=== PATIENT | male | born 2000 | race Native Hawaiian/Other Pacific Islander ===

== ENCOUNTER 2020-01-22 14:09 | Emergency (ER) | payer MEDICAID ==
[~2020-01-22] VITALS: Ht 170.2 cm; Wt 70.0 kg
[2020-01-22] MEDS ORDERED: diphenhydrAMINE 50 mg/ml inj IM ONE (14:25)
[2020-01-22] MEDS ORDERED: LORazepam 2 mg/ml vial IM ONE (14:25)
[2020-01-22] MEDS ORDERED: haloperidol lactate 5mg/ml inj IM ONE (14:25)
--- NOTE | 2020-01-22 15:30 | NUR ---
pt is in his bed. the police crime scene technician is writing [id number]
--- NOTE | 2020-01-22 16:30 | NUR ---
pt is sleeping. no concerns at this time
[2020-01-22 16:43] LABS: BASOPHILS # (AUTO) 0.1 X10'3 (0-0.2); BASOPHILS % (AUTO) 0.8 % (0-1); EOSINOPHILS # (AUTO) 0.4 X10'3 (0-0.9); EOSINOPHILS % (AUTO) 4.3 % (0-6); HEMATOCRIT 40.1 % (42.0-52.0); HEMOGLOBIN 13.6 g/dl (14.0-17.9); LYMPHOCYTES # (AUTO) 1.5 X10'3 (1.1-4.8); LYMPHOCYTES % (AUTO) 14.5 % (21-51); MEAN CORPUSCULAR HEMOGLOBIN 31.3 PG (27.0-31.0); MEAN CORPUSCULAR HGB CONC 33.9 g/dL (33.0-36.5); MEAN CORPUSCULAR VOLUME 92.5 FL (78-98); MEAN PLATELET VOLUME 6.9 FL (7.4-10.4); MONOCYTES # (AUTO) 0.6 X10'3 (0-0.9); MONOCYTES % (AUTO) 5.7 % (2-12); NEUTROPHILS # (AUTO) 7.6 X10'3 (1.8-7.7); NEUTROPHILS % (AUTO) 74.7 % (42-75); PLATELET COUNT 355 X10'3 (140-440); RED BLOOD COUNT 4.34 X10'6 (4.70-6.10); RED CELL DISTRIBUTION WIDTH 12.8 % (11.5-14.5); WHITE BLOOD COUNT 10.2 X10'3 (4.5-11.0)
[2020-01-22 16:53] LABS: CLARITY,URINE CLEAR (Clear); COLOR,URINE STRAW (Yellow); GLUCOSE, URINE NEGATIVE (Neg); KETONES,URINE NEGATIVE (Neg); LEUKOCYTE ESTERASE ,URINE NEGATIVE (Neg); NITRITES, URINE NEGATIVE (Neg); OCCULT BLOOD,URINE NEGATIVE (Neg); PROTEIN,URINE NEGATIVE (Neg); UROBILINOGEN,URINE 0.2 E.U/dL (0.2-1.0)
[2020-01-22 16:59] LABS: ALANINE AMINOTRANSFERASE 32 U/L (12-78); ALBUMIN 3.6 G/DL (3.4-5.0); ALBUMIN/GLOBULIN RATIO 1.2 (1.1-1.5); ALKALINE PHOSPHATASE 50 IU/L (46-116); ANION GAP 6 (8-16); ASPARTATE AMINO TRANSFERASE 29 U/L (10-37); BILIRUBIN,TOTAL 0.4 MG/DL (0.1-1.0); BLOOD UREA NITROGEN 9 MG/DL (7-18); BUN/CREATININE RATIO 13.6 (5.4-32.0); CHLORIDE 103 MMOL/L (99-107); CREATININE 0.66 MG/DL (0.60-1.10); GLUCOSE 87 MG/DL (70-104); POTASSIUM 3.9 MMOL/L (3.5-5.1); SODIUM 141 MMOL/L (135-145); TOTAL CARBON DIOXIDE 31.6 MMOL/L (24-32); TOTAL PROTEIN 6.5 G/DL (6.4-8.2); eGFR > 90 ML/MIN
[2020-01-22 17:00] LABS: URINE AMPHETAMINE SCREEN NEGATIVE (Neg); URINE BARBITUATE SCREEN NEGATIVE (Neg); URINE BENZODIAZEPINES SCREEN NEGATIVE (Neg); URINE CANNABINOID SCREEN POSITIVE (Neg); URINE COCAINE SCREEN NEGATIVE (Neg); URINE METHADONE SCREEN NEGATIVE (Neg); URINE OPIATE SCREEN NEGATIVE (Neg); URINE PHENCYCLIDINE SCREEN NEGATIVE (Neg)
[2020-01-22 17:04] LABS: UA COLLECTION TYPE CLN CATCH MIDSTREAM
[2020-01-22 17:05] LABS: ETHANOL < 0.010 GM/DL (0.0-0.010)
--- NOTE | 2020-01-22 17:59 | NUR ---
father Luis phone # [phone]
--- NOTE | 2020-01-22 18:51 | NUR ---
Patient is sleeping in a supine position. In view from nursing station.
--- NOTE | 2020-01-22 20:27 | NUR ---
Patient is sleeping quietly on his right side.
--- NOTE | 2020-01-23 00:49 | NUR ---
Patient sleeping on his left side, no distress. He self repositions.
--- NOTE | 2020-01-23 02:08 | NUR ---
Patient awoke, went to bathroom to void. Patient came to nursing station, wanted to know, "can I leave?" Patient was reoriented to the unit, advised he was on a psychiatric hold. Patient returned to bed and then sleep.
--- NOTE | 2020-01-23 04:32 | NUR ---
Patient up to nursing station. He requests and is denied shoes. Patient expresses his want to leave. Patient is advised once again that he is on a mental health hold. He then goes to bathroom and returns to bed.
--- NOTE | 2020-01-23 05:00 | NUR ---
Patient responding to internal stimuli. He is redirected to bed.
--- NOTE | 2020-01-23 05:52 | NUR ---
Betzaida garza in [facility] - 01/23/20 at 0614 by HODA Patient sleeping now. In view from nursing station.
--- NOTE | 2020-01-23 06:14 | NUR ---
Patient up to bathroom, responding to intrernal stimuli. Patilent affect if flat.
--- NOTE | 2020-01-23 07:21 | NUR ---
PT TRIED TO WALK OUT, STATES HE WANTED TO GET FRESH AIR, SECURITY CALLED TO ESCORT PT BACK TO HIS BED.
--- NOTE | 2020-01-23 08:40 | NUR ---
PT AWAKE EATING BREAKFAST.
--- NOTE | 2020-01-23 09:15 | NUR ---
PT SPOKE WITH PEDRO ON THE PHONE, HE STARTED TO GET UPSET, SAYING HE'S NEVER FELT LOVED. I TOLD HIM HE NEEDED TO END THE CONVERSATION SINCE IT WAS MAKING HIM UPSET. HE HANDED OVER THE PHONE AND IS NOW SLEEPING IN BED.
--- NOTE | 2020-01-23 11:00 | NUR ---
[facility] AT BEDSIDE EVALUATING PT
--- NOTE | 2020-01-23 11:36 | NUR ---
pt wondering, picked out a book and took it back to his bed
--- NOTE | 2020-01-23 11:51 | NUR ---
moved pt to bed 22 to be closer to the nurses station
--- NOTE | 2020-01-23 12:46 | NUR ---
packet faxed to [place] [facility]
[2020-01-23] MEDS ORDERED: LORazepam 1 MG tablet PO ONE (12:50)
--- NOTE | 2020-01-23 13:00 | NUR ---
Provided pt lunch.
--- NOTE | 2020-01-23 13:10 | NUR ---
administered ativan to pt due to pacing and trying to leave, also pt jumping in place and fidgeting with hands
--- NOTE | 2020-01-23 15:00 | NUR ---
PT SLEEPING, IN NO APPARENT DISTRESS, EVEN RISE AND FALL OF CHEST, WILL CONTINUE TO MONITOR CLOSELY.
--- NOTE | 2020-01-23 16:04 | NUR ---
PT AWAKE, UP TO BATHROOM INDEPENDENTLY.
--- NOTE | 2020-01-23 16:26 | NUR ---
PT IS ON THE PHONE WITH HIS FATHER
--- NOTE | 2020-01-23 16:57 | NUR ---
[facility] ACCEPTED PT.
[2020-01-23 17:34] VITALS: BP 127/65
--- NOTE | 2020-01-23 18:30 | NUR ---
PT WANDERING THE UNIT LOOKING FOR MAGIZINES REDIRECTED TO BED
--- NOTE | 2020-01-23 18:45 | NUR ---
CALLED UP TO [facility] FOR PT TO BE TYRANSFER UPSTAIRS ADMISSION PAPER WORK IS CURRENTLY AWAITING PT TO BE TRANSFERED UPSTAIR . THE PHONE WAS PICKED UP AND THEN DROPPED WITH OUT CONVERSATION WILL TRY AGAIN IN AN HOUR
--- NOTE | 2020-01-23 19:35 | NUR ---
PT FINISHING UP DINNER ASKED TO STAY IN HI S SPACE PROVIDED . ASKING WHEN HE IS GOING TO GO UP STAIRS
--- NOTE | 2020-01-23 19:49 | NUR ---
SPOKE WITH [facility] [employer] . SHE STATED THEY WOULD BE DOWN TO PICK PATIENT UP AT 2030 . UPDATED PATIEBNT WITH THAT PLAN OF CARE PT STANDING UPRIGHT NEXT TO BED
--- NOTE | 2020-01-23 20:23 | NUR ---
PT UP OUT OF BED TO USE PHONE TO TALK TO FATHER
--- NOTE | 2020-01-23 20:45 | NUR ---
behavior health tech to come and get patient for admission . pt ambulated off unit with steady gait with tech and security .
[2020-01-23] MEDS ORDERED: NO HOME MEDS (21:11)
== END 2020-01-23 20:45 ==
LOC: ER 14:09
DX: F29 Unspecified psychosis not due to a substance or known physiological condition (principal); R45.851 Suicidal ideations; R45.6 Violent behavior
CPT/HCPCS: 36415; 80053; 80305; 80320; 81003; 84443; 85025; 96372; 99285; J1200; J1630; J2060

== ENCOUNTER 2020-02-27 12:29 | Emergency (ER) | payer MEDICAID ==
[~2020-02-27] VITALS: Ht 170.2 cm; Wt 68.2 kg
[~2020-02-27 12:29] MED LIST: NICO-668 BC; RISP0.5T3 PO; RISP2TAB3 PO; TRAZ-251 PO
--- NOTE | 2020-02-27 13:08 | NUR ---
Patient ambulated to bed 20. Changing into scrubs at this time.
[2020-02-27 13:50] LABS: URINE AMPHETAMINE SCREEN NEGATIVE (Neg); URINE BARBITUATE SCREEN NEGATIVE (Neg); URINE BENZODIAZEPINES SCREEN NEGATIVE (Neg); URINE CANNABINOID SCREEN NEGATIVE (Neg); URINE COCAINE SCREEN NEGATIVE (Neg); URINE METHADONE SCREEN NEGATIVE (Neg); URINE OPIATE SCREEN NEGATIVE (Neg); URINE PHENCYCLIDINE SCREEN NEGATIVE (Neg)
[2020-02-27 13:50] LABS: BASOPHILS # (AUTO) 0.1 X10'3 (0-0.2); BASOPHILS % (AUTO) 0.8 % (0-1); EOSINOPHILS # (AUTO) 0.1 X10'3 (0-0.9); HEMATOCRIT 44.4 % (42.0-52.0); HEMOGLOBIN 14.8 g/dl (14.0-17.9); LYMPHOCYTES # (AUTO) 1.2 X10'3 (1.1-4.8); LYMPHOCYTES % (AUTO) 10.4 % (21-51); MEAN CORPUSCULAR HEMOGLOBIN 31.2 PG (27.0-31.0); MEAN CORPUSCULAR HGB CONC 33.3 g/dL (33.0-36.5); MEAN CORPUSCULAR VOLUME 93.6 FL (78-98); MEAN PLATELET VOLUME 7.5 FL (7.4-10.4); MONOCYTES # (AUTO) 0.9 X10'3 (0-0.9); MONOCYTES % (AUTO) 8.1 % (2-12); NEUTROPHILS # (AUTO) 9.3 X10'3 (1.8-7.7); NEUTROPHILS % (AUTO) 79.7 % (42-75); PLATELET COUNT 294 X10'3 (140-440); RED BLOOD COUNT 4.75 X10'6 (4.70-6.10); RED CELL DISTRIBUTION WIDTH 14.1 % (11.5-14.5); WHITE BLOOD COUNT 11.7 X10'3 (4.5-11.0)
[2020-02-27 14:06] LABS: ALANINE AMINOTRANSFERASE 136 U/L (12-78); ALBUMIN 4.6 G/DL (3.4-5.0); ALBUMIN/GLOBULIN RATIO 1.4 (1.1-1.5); ALKALINE PHOSPHATASE 76 IU/L (46-116); ANION GAP 7 (8-16); ASPARTATE AMINO TRANSFERASE 37 U/L (10-37); BILIRUBIN,TOTAL 0.8 MG/DL (0.1-1.0); BLOOD UREA NITROGEN 11 MG/DL (7-18); BUN/CREATININE RATIO 12.5 (5.4-32.0); CALCIUM 9.3 MG/DL (8.5-10.1); CHLORIDE 101 MMOL/L (99-107); CREATININE 0.88 MG/DL (0.60-1.10); GLUCOSE 127 MG/DL (70-104); POTASSIUM 3.9 MMOL/L (3.5-5.1); SODIUM 136 MMOL/L (135-145); TOTAL PROTEIN 7.9 G/DL (6.4-8.2); eGFR > 90 ML/MIN
[2020-02-27 14:16] LABS: ETHANOL < 0.010 GM/DL (0.0-0.010)
[2020-02-27] MEDS ORDERED: RISP2TAB3 PO (14:30)
[2020-02-27] MEDS ORDERED: RISP1TAB3 PO (14:30)
[2020-02-27] MEDS ORDERED: TRAZ-251 PO (14:30)
[2020-02-27] MEDS ORDERED: traZODone 50mg tablet PO PRN (14:45)
--- NOTE | 2020-02-27 15:16 | NUR ---
Betzaida garza in ED - 02/27/20 at 1517 by AYAN Patient standing by bedside. Resistent to care, not answering any questions.
--- NOTE | 2020-02-27 15:17 | NUR ---
Patient walking unit, going in and out of restroom. Pt admits to , restarted medications from [facility]. Patient is making noise BRRRRR. Jose Alfredo's father called and stated he did not want him back until he is stable and on "the right medications".
--- NOTE | 2020-02-27 15:33 | NUR ---
Packet faxed to [facility]
--- NOTE | 2020-02-27 17:30 | NUR ---
Patient is pacing unit. He keeps asking RN why he is here, and then when he is told that he was threatening to get a gun and shoot himself, he does not seem to respond with understanding.
[2020-02-27] MEDS ORDERED: LORazepam 1 MG tablet PO ONE (18:35)
[2020-02-27] MEDS: risperiDONE 2mg tablet PO SCH (20:10)
--- NOTE | 2020-02-27 20:20 | NUR ---
PATIENT HAS BEEN WANDERING THROUGHOUT THE UNIT. HE RECIEVED HIS NIGHT MEDS AND IS SLOWLY BECOMING MORE RESTFUL.
[2020-02-28 01:31] LABS: CLARITY,URINE CLEAR (Clear); COLOR,URINE YELLOW (Yellow); GLUCOSE, URINE NEGATIVE (Neg); KETONES,URINE NEGATIVE (Neg); LEUKOCYTE ESTERASE ,URINE NEGATIVE (Neg); NITRITES, URINE NEGATIVE (Neg); OCCULT BLOOD,URINE NEGATIVE (Neg); PROTEIN,URINE NEGATIVE (Neg); UROBILINOGEN,URINE 0.2 E.U/dL (0.2-1.0)
[2020-02-28 01:34] LABS: UA COLLECTION TYPE VOIDED
[2020-02-28 05:48] VITALS: BP 129/61
[2020-02-28] MEDS ORDERED: LORazepam 1 MG tablet PO ONE (06:25)
--- NOTE | 2020-02-28 06:26 | NUR ---
PT PACING FLOOR, ASKING TO USE THE PHONE. INFORM PT THAT HE CAN USE THE PHONE AT 8AM.
[2020-02-28] MEDS: risperiDONE 2mg tablet PO SCH (07:04)
--- NOTE | 2020-02-28 07:30 | NUR ---
PT IS NOW IN BED AND SLEEPING. NO S/S AGITATION OR DISTRESS.
--- NOTE | 2020-02-28 08:00 | NUR ---
PT'S FATHER CALLS TO CHECK ON HIM. PT IS SLEEPING AND HE WILL CALL BACK.
--- NOTE | 2020-02-28 09:33 | NUR ---
patient accepted to [facility] via [facility] office
--- NOTE | 2020-02-28 09:50 | NUR ---
PT AWAKE, AMB TO BATHROOM, GIVEN THE PHONE REQUESTED.
--- NOTE | 2020-02-28 10:42 | NUR ---
PT'S FATHER CALLS AND IS TALKING TO THE PT. PT IS GETTING AGITATED AND RAISING HIS VOICE AND THEN CALLING HIS FATHER NAMES AND SWEARING. PHONE IS THEN TAKEN AWAY FROM PT.
[2020-02-28] MEDS ORDERED: risperiDONE 0.5mg tablet PO SCH (12:30)
[2020-02-28] MEDS ORDERED: RISP0.5T3 PO (15:28)
== END 2020-02-28 11:20 | disposition home or self-care (01) ==
LOC: ER 12:29
DX: F32.9 Major depressive disorder, single episode, unspecified (principal); R45.850 Homicidal ideations
CPT/HCPCS: 36415; 80053; 80305; 80320; 81003; 85025; 99285

== ENCOUNTER 2025-02-26 09:35 | Emergency (ER) | payer MEDICARE, MEDICAID ==
[~2025-02-26] VITALS: Ht 165.1 cm; Wt 75.0 kg
[~2025-02-26 09:35] MED LIST changes: +CARI1.5C PO; +CARI4.5C PO; +CHOL100046 PO; +FOLI0.8T22 PO; +MELA3TAB39 PO; +MULT-25 PO; -NICO-668 BC; +NICO-907 BC; +PROP20TA6 PO; -RISP0.5T3 PO; -RISP2TAB3 PO; +TEMA15CA5 PO; -TRAZ-251 PO; +VENL37.589 PO
--- NOTE | 2025-02-26 10:53 | Physician Documentation ---
History of Present Illness ~ Chief Complaint: 5150 Stated Complaint: 5150 Time Seen by MD: 09:47 Primary Medical Doctor: [facility] Mode of Arrival: Ambulatory HPI Patient is seen today being brought in today on a 5150 hold. Patient states he has previously been placed on hold such as this before for suicidal risk. Patient states he has been struggling with suicidal ideation. Patient admits to hearing voices telling him to hurt himself. Patient denies any chest pain or shortness of breath or abdominal pain or nausea, vomiting, diarrhea. Patient has no other concern or complaint at this time. Medication Reconciliation Allergies: Coded Allergies: No Known Allergies (Unverified , 02/26/25) Scheduled Cariprazine Hydrochloride (Vraylar), 1 CAP PO QAM Cholecalciferol (Vitamin D3) (Vitamin D3), 1,000 UNIT PO DAILY Folic Acid/Vitamin B Comp W-C (Ashley-Gilma Tablet), 1 TAB PO DAILY Melatonin (Melatonin), 3 MG PO HS Multivitamin with Folic Acid (Thera Tablet), 1 EACH PO DAILY Propranolol Hcl (Propranolol Hcl), 1 TAB PO TID, (Reported) Venlafaxine Hcl (Venlafaxine Hcl Er), 1 CAP PO DAILY, (Reported) Scheduled PRN Cariprazine Hydrochloride (Vraylar), 1 CAP PO DAILY PRN for VOICES Nicotine Polacrilex (Nicotine Lozenge), 2 MG BC Q2H PRN for NICOTINE CRAVING Temazepam (Restoril), 15 MG PO HS PRN for sleep Past Medical History Past Medical History: *PSYCH*, Depression Past Surgical History: noncontributory Patient History: Patient reports no known family medical history. Alcohol Use: Other Drug Use: other Lives with: Father Lives In: Home Review of Systems Constitutional: Denies: chills, fever, weakness Eyes: Denies: pain, blurred vision ENT: Denies: ear pain, nose pain, throat pain, mouth pain Respiratory: Denies: cough, shortness of breath Cardiovascular: Denies: chest pain, palpitations Gastrointestinal: Denies: abdominal pain, nausea, vomiting Genitourinary: Denies: burning, dysuria Male Genitalia: Denies: penile discharge, testicular pain Neurological: Denies: headache, dizziness Musculoskeletal: Denies: pain, swelling Integumentary: Denies: rash, lesions Allergic/Immunologic: Denies: hives, itching Hematologic/Lymphatic: Denies: no symptoms reported Psychiatric: Denies: depression, anxiety Physical Exam Vital Signs: Temperature: 98.9, Source: Oral, Heart Rate: 77, Respiratory Rate: 16, BP: 129/92, Pulse Oximetry: 98, Weight: 75.000 Oxygen Flow Rate: 0 Physical Exam General: Awake and Alert, no acute distress. HEENT: Conjunctiva pink, Sclera clear, Mucus Membranes moist. Neck: Supple without masses and tenderness. Resp: Unlabored. Lungs clear to auscultation bilaterally. Heart: Regular Rate and rhythm, normal S1 and S2 without murmur, rub or gallop. Abdomen: Soft and non tender no organomegaly Extremities: No cyanosis,clubbing or edema. Skin: Warm and Dry. Progress Results/Orders Results/Orders Orders - BROOKE DEVLIN Med Rec (02/26/25 10:47) Close Observation Level (02/26/25 10:47) Covid19 Binax Poc Result Entry (02/26/25 10:47) Substance Use Navigator (02/26/25 10:47) Regular Diet (02/26/25 Dinner) 1799.11 (02/26/25 10:47) Completed Orders - BROOKE DEVLIN Cbc/Diff (02/26/25 10:47) Urinalysis (02/26/25 10:47) Drug Screen, Urine (02/26/25 10:47) Ethanol (02/26/25 10:47) TSH (02/26/25 10:47) BMP (02/26/25 10:47) Olanzapine 5mg Tablet (Zyprexa 5mg Table (02/26/25 12:25) Medications Received in ER Medications (Trade) Dose Ordered Sig/Sharif Route PRN Reason Start Time Stop Time Status Last Admin Dose Admin (Zyprexa 5mg tablet) 15 mg ONCE STAT PO 02/26/25 12:25 02/26/25 12:26 DC 02/26/25 12:48 15 MG Vital Signs 02/26/25 02/26/25 09:53 10:32 Temp 98.9 Pulse 77 Resp 16 16 B/P (MAP) 129/92 Pulse Ox 98 O2 Flow Rate 0 Laboratory Tests Test 02/26/25 11:16 02/26/25 12:27 White Blood Count 10.8 Red Blood Count 5.43 Hemoglobin 16.5 Hematocrit 49.0 Mean Corpuscular Volume 90.3 Mean Corpuscular Hemoglobin 30.5 Mean Corpuscular Hemoglobin Concent 33.8 Red Cell Distribution Width 13.4 Platelet Count 334 Mean Platelet Volume 7.6 Neutrophils (%) (Auto) 64.0 Lymphocytes (%) (Auto) 23.9 Monocytes (%) (Auto) 8.0 Eosinophils (%) (Auto) 2.8 Basophils (%) (Auto) 1.3 H Neutrophils # (Auto) 6.9 Lymphocytes # (Auto) 2.6 Monocytes # (Auto) 0.9 Eosinophils # (Auto) 0.3 Basophils # (Auto) 0.1 CBC Comment Sodium Level 134 L Potassium Level 4.1 Chloride Level 98 L Carbon Dioxide Level 30.2 Anion Gap 6 L Blood Urea Nitrogen 7 Creatinine 0.91 Estimated GFR/1.73 m2 > 90 BUN/Creatinine Ratio 7.7 L Glucose Level 103 Calcium Level 8.8 Albumin 4.4 Thyroid Stimulating Hormone (TSH) 0.92 Chemistry Comments Ethyl Alcohol Level < 10 Urine Specimen Description Urinal Urine Color Yellow Urine Clarity Clear Urine pH 6.5 Urine Specific [place] <=1.005 Urine Protein Negative Urine Glucose (UA) Negative Urine Ketones Trace H Urine Occult Blood Negative Urine Nitrite Negative Urine Bilirubin Negative Urine Urobilinogen 0.2 Urine Leukocyte Esterase Negative Volume Urine Centrifuged 10 ml Urine Comment Urine Opiates Screen Negative Urine Methadone Screen Negative Urine Fentanyl Screen Negative Urine Barbiturates Screen Negative Urine Phencyclidine Screen Negative Urine Amphetamines Screen Negative Urine Benzodiazepines Screen Negative Urine Cocaine Screen Negative Urine Cannabinoids Screen Positive Drug Screen Comment Medical Decision Making Additional information obtaine: N/A Findings Patient is seen today being brought in today on a 5150 hold. Patient states he has previously been placed on hold such as this before for suicidal risk. Patient states he has been struggling with suicidal ideation. Patient admits to hearing voices telling him to hurt himself. Patient denies any chest pain or shortness of breath or abdominal pain or nausea, vomiting, diarrhea. Patient has no other concern or complaint at this time. Patient is medically cleared for psychiatric evaluation. Differential Dx:Considerations: Include: Alcohol abuse, Anxiety, Bipolar disorder, Conversion disorder, Depression, Homicidal, Panic disorder, Personality disorder, Schizophrenia, Substance abuse, Suicidal Departure Disposition: 30 STILL A PATIENT Impression: Primary Impression: Suicidal ideation Additional Impression: Schizoaffective disorder Qualified Codes: F25.9 - Schizoaffective disorder, unspecified Condition: Stable Discharge Instructions: Suicidal Feelings: How to Help Yourself Additional Instructions: Transfer orders for [facility]: At this time there is no evidence of an emergent medical condition that would preclude (admission/transfer) to a psychiatric unit via [facility] protocol for further psychiatric, as well as medical evaluation and treatment. At this time I have no reason to believe that transfer via [facility] protocol would have serious medical compromise in the patient's health. Patient is medically cleared for psychiatric evaluation. Referrals: NO PRIMARY CARE PROVIDER (PCP) Signature Scribe Signature: No scribe Attestation: No scribe BROOKE DEVLIN [facility] Feb 26, 2025 10:53
[2025-02-26 11:28] LABS: MEAN PLATELET VOLUME 7.6 FL (7.4-10.4); RED CELL DISTRIBUTION WIDTH 13.4 % (11.5-14.5)
[2025-02-26 11:55] LABS: CREATININE 0.91 MG/DL (0.60-1.10); TOTAL CARBON DIOXIDE 30.2 MMOL/L (24-32); eCRCL 107 ML/MIN; eGFR > 90 ML/MIN
[2025-02-26 11:58] LABS: ETHANOL < 10 MG/DL (<10)
[2025-02-26 12:39] LABS: LEUKOCYTE ESTERASE ,URINE NEGATIVE (Neg); NITRITES, URINE NEGATIVE (Neg); OCCULT BLOOD,URINE NEGATIVE (Neg)
[2025-02-26] MEDS: OLANZAPINE 5 MG TABLET PO STA (12:48)
[2025-02-26 12:52] LABS: UA COLLECTION TYPE URINAL
[2025-02-26 12:56] LABS: URINE AMPHETAMINE SCREEN NEGATIVE (Neg); URINE BARBITUATE SCREEN NEGATIVE (Neg); URINE BENZODIAZEPINES SCREEN NEGATIVE (Neg); URINE CANNABINOID SCREEN POSITIVE (Neg); URINE COCAINE SCREEN NEGATIVE (Neg); URINE METHADONE SCREEN NEGATIVE (Neg); URINE OPIATE SCREEN NEGATIVE (Neg); URINE PHENCYCLIDINE SCREEN NEGATIVE (Neg)
[2025-02-26] MEDS ORDERED: OLAN10TA21 PO (15:46)
[2025-02-26] MEDS ORDERED: OLAN5TAB75 PO (15:46)
[2025-02-26] MEDS: propranolol 10mg tablet PO SCH (20:12)
[2025-02-26] MEDS: OLANZAPINE 5 MG TABLET PO SCH (20:12)
[2025-02-27 05:39] VITALS: BP 114/69; PULSE 53; RESP 16; O2SAT 97
[2025-02-27 18:14] VITALS: TEMP 97.5
== END 2025-02-27 18:17 ==
LOC: ER 09:36
DX: R45.851 Suicidal ideations (principal); F25.9 Schizoaffective disorder, unspecified; F32.A Depression, unspecified; Z79.899 Other long term (current) drug therapy; Z20.822 Contact with and (suspected) exposure to COVID-19
CPT/HCPCS: 36415; 80048; 80305; 81003; 84443; 85025; 99285; G0480; Q0163; 80320